=== PATIENT | female | born 1935 | race Caucasian/White ===

== ENCOUNTER 2018-03-10 17:37 | Inpatient (IN) | payer MEDICARE, BC ==
[~2018-03-10] VITALS: Ht 144.8 cm; Wt 61.2 kg
--- NOTE | 2018-03-10 17:52 | NUR ---
PT BIBRA TO ER BED 07. PRESENTS W/ LLE PAIN S/P MECHANICAL GLF AT AROUND 0930 TODAY. LLE SHORTENING W/ EXTERNAL ROTATION NOTED. FACIAL BRUSING AND SCALP LACERATION NOTED. PT IS AAOX3. C/O 06/15 PAIN. PLACED ON MONITOR. VSS. AWAITING MD YANG.
--- NOTE | 2018-03-10 17:58 | NUR ---
PT'S DAUGHTER KOREY [phone]
[2018-03-10] MEDS ORDERED: IV NS 0.9% 500 ML BAG IV ONE (18:00)
[2018-03-10] MEDS ORDERED: MORPHINE SULFATE INJ 2 MG/ML DISP.SYRIN IV ONE (18:00)
--- NOTE | 2018-03-10 18:00 | NUR ---
DR DUBON AT BEDSIDE FOR EVAL.
[2018-03-10 18:19] LABS: BASOPHILS # (AUTO) 0.1 /CMM (0.0-0.2); BASOPHILS % (AUTO) 0.3 % (0.0-2.0); HEMATOCRIT 36 % (33-45); HEMOGLOBIN 11.7 g/dL (11.5-14.8); LYMPHOCYTES # (AUTO) 0.3 /CMM (0.8-4.8); LYMPHOCYTES % (AUTO) 1.5 % (20.0-44.0); MEAN CORPUSCULAR HGB CONC 33 g/dl (31.0-36.0); MEAN CORPUSCULAR VOLUME 97 fL (82-100); MONOCYTES # (AUTO) 0.6 /CMM (0.1-1.30); MONOCYTES % (AUTO) 3.6 % (2.0-12.0); NEUTROPHILS # (AUTO) 16.2 /CMM (1.8-8.9); NEUTROPHILS % (AUTO) 94.6 % (43.0-81.0); PLATELET COUNT (AUTO) 258 /CMM (150-450); RED BLOOD CELL COUNT(AUTO) 3.69 MIL/uL (4.0-5.2); WHITE BLOOD COUNT (AUTO) 17.2 K/uL (4.3-11.0)
[2018-03-10 18:27] LABS: BILIRUBIN,URINE Negative (NEGATIVE); BLOOD, URINE Trace-intact Ery/uL (NEGATIVE); COLOR,URINE Yellow (YELLOW); KETONES,URINE Trace (NEGATIVE); LEUKOCYTE ESTERASE ,URINE Large (NEGATIVE); NITRITE, URINE Positive (NEGATIVE); PH,URINE 7.5 (5.0-8.0); PROTEIN,URINE 30 mg/dl (NEGATIVE); UGLUCOSE Negative (NEGATIVE); UROBILINOGEN,URINE 0.2 EU/dL (0.2)
[2018-03-10 18:29] LABS: APPEARANCE,URINE HAZY (CLEAR)
[2018-03-10 18:33] LABS: CALCIUM, SERUM 8.4 mg/dL (8.5-10.1); CARBON DIOXIDE 26 mmol/L (21-32); CHLORIDE 106 mmol/L (98-107); CREATININE 1.2 mg/dL (0.6-1.3); GLUCOSE 104 mg/dL (74-106); POTASSIUM 4.1 mmol/L (3.5-5.1); SODIUM SERUM 141 mmol/L (136-145); UREA NITROGEN, BLOOD 23 mg/dL (7-18)
[2018-03-10 18:37] LABS: BACTERIA,URINE Many /HPF (None Seen); SQUAMOUS EPITHELIAL CELL,UR Few /HPF (None Seen)
[2018-03-10 18:38] LABS: WBC,URINE 21-50 /HPF (0-3)
[2018-03-10 18:39] LABS: ALANINE AMINOTRANSFERASE 20 U/L (12-78); ALBUMIN 2.5 g/dL (3.4-5.0); ALKALINE PHOSPHATASE 192 U/L (46-116); ASPARTATE AMINOTRANSFERASE 32 U/L (15-37); BILIRUBIN,DIRECT 0.1 mg/dL (0.0-0.2); BILIRUBIN,TOTAL 0.4 mg/dL (0.2-1.0); TOTAL PROTEIN, SERUM 6.6 g/dL (6.4-8.2)
[2018-03-10] MEDS ORDERED: CLOP75TA15 PO (18:39)
[2018-03-10] MEDS ORDERED: DOMPERIDONE PO (18:39)
[2018-03-10] MEDS ORDERED: HYDR200T81 PO (18:39)
[2018-03-10] MEDS ORDERED: METO25TA6 PO (18:39)
[2018-03-10] MEDS ORDERED: BUSP5TAB3 PO (18:39)
[2018-03-10] MEDS ORDERED: NITR50CA PO (18:39)
[2018-03-10] MEDS ORDERED: ALEN70TA6 PO (18:39)
[2018-03-10] MEDS ORDERED: MYRBETRIQ PO (18:39)
[2018-03-10] MEDS ORDERED: CALC0.253 PO (18:39)
[2018-03-10] MEDS ORDERED: FURO-145 PO (18:39)
[2018-03-10] MEDS ORDERED: MELA3TAB PO (18:39)
[2018-03-10] MEDS ORDERED: PROM25TA15 PO (18:39)
--- NOTE | 2018-03-10 18:40 | NUR ---
PT TO RADIOLOGY FOR HEAD, C SPINE, THORACIC CT SCAN VIA [facility].
[2018-03-10] MEDS ORDERED: CEFTRIAXONE 1GM BAG (ER ONLY) 50 ML IV ONE ×2 (19:00→19:11)
[2018-03-10] MEDS ORDERED: IV NS 0.9% 1,000 ML BAG IV ONE (19:00)
--- NOTE | 2018-03-10 19:08 | NUR ---
REPORT TO TRISH ODELL FOR KARINA.
[2018-03-10 19:17] LABS: CREATINE KINASE, TOTAL 148 U/L (26-192)
--- NOTE | 2018-03-10 19:25 | NUR ---
PER PHARMACY MORPHINE IVP OUT OF STOCK, MADE AWARE. NEW ORDER FOR DILAUDID IVP
[2018-03-10] MEDS ORDERED: HYDROMORPHONE INJ 2 MG/ML DISP.SYRIN ONE (19:28)
[2018-03-10] MEDS ORDERED: HYDROMORPHONE 1 MG/1 ML DISP.SYRIN IV ONE (19:30)
--- NOTE | 2018-03-10 19:44 | NUR ---
CALLED [place] GUM SPRAYER WAS PAGED.
--- NOTE | 2018-03-10 19:45 | NUR ---
CALLED [place] MATHEWS MH TEACHER WAS PAGED.
[2018-03-10 20:20] VITALS: BP 165/79
--- NOTE | 2018-03-10 20:21 | NUR ---
TRANSFERRED TO ROOM 324-2 MS
--- NOTE | 2018-03-10 20:21 | NUR ---
REPORT GIVEN TO CASS HUGO FOR KARINA
--- NOTE | 2018-03-10 20:45 | NUR ---
RN NOTES ADMITTED AN 82 YEAR OLD FEMALE PATIENT TRANSPORTED VIA GURNEY, ACCOMPANIED BY FAMILY FRIEND. AWAKE, ALERT, ORIENTED X 4. BREATHING EVEN AND NON LABORED, WITH IV ACCESS ON HER RIGHT AC G#20 DRY AND INTACT. NO SIGNS OF ACUTE DISTRESS NOTED, INITIAL PHYSICAL ASSESSMENT DONE. KEPT CLEAN DRY AND COMFORTABLE. ALL SAFETY MEASURES MAINTAINED, BED IN LOW LOCK POSITION, BEDSIDE RAILS UP X 2. ALL NEEDS ATTENDED. WILL MONITOR ACCORDINGLY.
[2018-03-10] MEDS ORDERED: CIPROFLOXACIN HCL 250 MG TABLET PO SCH (23:00)
[2018-03-11] VITALS (10 sets, daily range): BP systolic 108–146; BP diastolic 52–80
[2018-03-11] MEDS ORDERED: ACETAMINOPHEN 650 MG/SUPP.RECT RC PRN
[2018-03-11] MEDS ORDERED: ONDANSETRON HCL/PF 4 MG/2 ML VIAL IVP PRN
[2018-03-11] MEDS ORDERED: NITROGLYCERIN PACKET 1 GM PACKET TOP PRN
[2018-03-11] MEDS: IV D5/0.45 NACL 1,000 ML IV PRN (00:19)
[2018-03-11] MEDS ORDERED: CIPROFLOXACIN HCL 500 MG TABLET ONE (00:46)
[2018-03-11] MEDS ORDERED: CIPROFLOXACIN HCL 500 MG TABLET PO SCH (00:52)
[2018-03-11] MEDS ORDERED: CIPROFLOXACIN HCL 500 MG TABLET PO ONE (01:00)
[2018-03-11] MEDS: HYDROMORPHONE INJ 2 MG/ML DISP.SYRIN IV PRN ×2 (03:53→23:04)
[2018-03-11] MEDS ORDERED: CLONIDINE HCL 0.1MG/24H PTWK 1 EA PATCH TD SCH (06:00)
--- NOTE | 2018-03-11 06:23 | NUR ---
MS RN NOTES PATIENT RESTING COMFORTABLY AT THIS TIME, ALERT ORIENTED X 4, NPO AFTER MIDNIGHT, PRE OP CHECKLIST DONE, CONSENT SIGNED FOR INTRAMEDULLARY LEFT HIP NAILING. ALL BED SIDE RAILS UP, SITTER AT BEDSIDE. KEEP CLEAN AND DRY, FC DRAINING WELL, WILL ENDORSE TO AM NURSE FOR KARINA..
[2018-03-11 06:36] LABS: BASOPHILS % (AUTO) 0.1 % (0.0-2.0); HEMATOCRIT 31 % (33-45); HEMOGLOBIN 10.4 g/dL (11.5-14.8); LYMPHOCYTES # (AUTO) 0.6 /CMM (0.8-4.8); LYMPHOCYTES % (AUTO) 5.4 % (20.0-44.0); MEAN CORPUSCULAR HGB CONC 34 g/dl (31.0-36.0); MEAN CORPUSCULAR VOLUME 96 fL (82-100); MONOCYTES # (AUTO) 0.9 /CMM (0.1-1.30); MONOCYTES % (AUTO) 7.6 % (2.0-12.0); NEUTROPHILS # (AUTO) 9.7 /CMM (1.8-8.9); NEUTROPHILS % (AUTO) 86.9 % (43.0-81.0); PLATELET COUNT (AUTO) 209 /CMM (150-450); RED BLOOD CELL COUNT(AUTO) 3.23 MIL/uL (4.0-5.2); WHITE BLOOD COUNT (AUTO) 11.2 K/uL (4.3-11.0)
[2018-03-11 06:53] LABS: ALANINE AMINOTRANSFERASE 17 U/L (12-78); ALBUMIN 2.1 g/dL (3.4-5.0); ALKALINE PHOSPHATASE 157 U/L (46-116); ASPARTATE AMINOTRANSFERASE 29 U/L (15-37); BILIRUBIN,TOTAL 0.3 mg/dL (0.2-1.0); CALCIUM, SERUM 7.9 mg/dL (8.5-10.1); CARBON DIOXIDE 26 mmol/L (21-32); CHLORIDE 108 mmol/L (98-107); GLUCOSE 96 mg/dL (74-106); MAGNESIUM 1.6 mg/dL (1.8-2.4); PHOSPHORUS 3.9 mg/dL (2.5-4.9); POTASSIUM 4.5 mmol/L (3.5-5.1); SODIUM SERUM 140 mmol/L (136-145); TOTAL PROTEIN, SERUM 5.7 g/dL (6.4-8.2); UREA NITROGEN, BLOOD 20 mg/dL (7-18)
--- NOTE | 2018-03-11 07:15 | NUR ---
RN NOTES RECEIVED CALL FROM OR, SPOKE TO CASS SORIA, REGARDING PTS SURGERY, WILL WAIT FOR CARDIAC CLEARANCE AND TO CALL SURGERY ONCE CLEARED. WILL ENDORSE TO AM NURSE.
--- NOTE | 2018-03-11 07:53 | NUR ---
PLANT SUPERINTENDENT NOTES PATIENT RECEIVED RESTING INSIDE ROOM. SLEEPING, EASILY AROUSABLE THROUGH VERBAL AND TACTILE STIMULI. BREATHING EVEN AND UNLABORED. NO SOB OR ACUTE DISTRESS. PATIENT CALM AND RELAXED. DENIES ANY PAIN OR DISCOMFORT. CONTINUE ON TELEMETRY, BOOKING POLICE OFFICER IN PLACE. PATIENT NPO SINCE MIDNIGHT. AWAITING FOR CARDIAC CLEARANCE, WITH PLAN FOR SURGERY TODAY. PATIENT AWARE AND VERBALIZED UNDERSTANDING. WILL CONTINUE TO MONITOR. BED LOCKED AND IN LOW POSITION. BILATERAL UPPER SIDE RAILS UP AND LOCKED. CALL LIGHT WITHIN EASY REACH
--- NOTE | 2018-03-11 08:26 | NUR ---
RECOVERY ROOM RN NOTES PLACED CALL TO OFFICE OF DR. PAN ([phone]) AND SPOKE TO ROBYN, UNABLE TO DIRECTLY SPEAK TO DR. PAN AT THIS TIME. LEFT A MESSAGE WITH ROBYN REGARDING REQUEST FOR CARDIAC CLEARANCE. PLACED CALL TO OR/PRE-OP AND MADE AWARE OF PENDING CARDIAC CLEARANCE.
[2018-03-11] MEDS: CIPROFLOXACIN HCL 500 MG TABLET PO SCH ×2 (08:57→21:11)
[2018-03-11] MEDS: PANTOPRAZOLE 40 MG VIAL IV SCH (08:57)
--- NOTE | 2018-03-11 09:10 | NUR ---
REPAIRER HANDTOOLS NOTES PATIENT SEEN AND EXAMINED BY DR. PAN. CLEARED FOR SURGERY. DR. RAMAN PRESENT AT UNIT AND AWARE. PATIENT MADE AWARE AND VERBALIZED UNDERSTANDING. PATIENT LEFT FOR SURGERY AT 0910 IN STABLE CONDITION. BREATHING EVEN AND UNLABORED. NO SOB OR ACUTE DISTRESS. WILL CONTINUE TO MONITOR
[2018-03-11 09:15] LABS: CHOLESTEROL 115 mg/dL (<200); HDL CHOLESTEROL 57 mg/dL (40-60); LDL 51 mg/dL (0-99); THYROID STIMULATING HORMONE 1.816 uIU/mL (0.358-3.74); TRIGLYCERIDES 80 mg/dL (30-150)
[2018-03-11] MEDS ORDERED: FENTANYL PF 250MCG/5ML AMPUL ONE (09:17)
[2018-03-11] MEDS ORDERED: MIDAZOLAM HCL 2 MG/2ML VIAL ONE ×2 (09:17→12:38)
[2018-03-11] MEDS ORDERED: ROCURONIUM BROMIDE 50 MG/5 ML ONE (09:18)
[2018-03-11] MEDS ORDERED: METOCLOPRAMIDE HCL 10 MG/2 ML VIAL ONE ×2 (09:30→11:53)
[2018-03-11] MEDS ORDERED: FAMOTIDINE/PF INJ 20 MG/2 ML VIAL IV ONE (09:30)
[2018-03-11] MEDS ORDERED: BACITRACIN 50000 UNITS/VIAL ONE (10:08)
[2018-03-11] MEDS ORDERED: BUPIVACAINE 0.5 % PF 150 MG/30 ML VIAL ONE (11:01)
[2018-03-11] MEDS ORDERED: ONDANSETRON HCL/PF 4 MG/2 ML VIAL ONE (12:02)
[2018-03-11] MEDS ORDERED: ALBUTEROL HALF STRENGTH 1.25 MG/3 ML VIAL.NEB ONE (12:25)
--- NOTE | 2018-03-11 12:30 | NUR ---
RARE/ENDANGERED SPECIES SPECIALIST NOTES RECEIVED CALL FROM RECOVERY, SPOKE WITH YANG RN AND RECEIVED REPORT THAT PATIENT WILL BE COMING BACK FROM SURGERY/RECOVERY. PREPARED MAGNESIUM 1G X 2 BAGS FOR IV INFUSION ONCE PATIENT COMES BACK TO UNIT.
--- NOTE | 2018-03-11 13:00 | NUR ---
COMPOSER TEACHING ARTIST NOTES RECEIVED CALL FROM MAT CHARGE NURSE THAT PATIENT WILL BE TRANSFERED TO MAT. REPORT GIVEN TO RIMMA ODELL. MAGNESIUM 1G X 2 BAGS AND PATIENT BELONGINGS WILL BE BROUGHT TO MAT FOR PATIENT TRANSFER
--- NOTE | 2018-03-11 13:18 | NUR ---
marissa rn note received patient from sx with dx lt femur fx ,s\p lt hip im rodding , under care dr Liao, alert , oriented x3 on 2l nc, sat 100%, no sob noted at this time , with Fermin cath to gravity with yellow color urine , will restart ivf as ordered , bed in lowest and locked position, lt hip dressing intact, no bleeding noted ,rt ac hl intact, will cont to monitor closely
--- NOTE | 2018-03-11 13:30 | NUR ---
HIM SPECIALISTS NOTES BEDSIDE REPORT GIVEN TO BEENA ODELL FOR KARINA. PATIENT BELONGINGS BROUGHT TO MAT. ALL BELONGINGS COMPLETE ON TRANSFER, INCLUDING, BUT NOT LIMITED TO, CELL PHONE, CLOTHES, MEDICATION LIST. MD MADE AWARE OF TRANSFER
[2018-03-11] MEDS: Magnesium 1GM/D5W 100ML PREMIX 100 ML IV SCH ×2 (13:34→14:37)
[2018-03-11] MEDS: ENOXAPARIN SODIUM 30 MG/0.3 ML DISP.SYRIN SQ SCH (13:38)
--- NOTE | 2018-03-11 15:00 | NUR ---
MAT RN NOTE NOTED BLEEDING FROM SITE ON LT LOWER LEG ,DRESSING REINFORCED, ALSO ON MAGNESIUM INFUSING, VS TAKEN , NO C\O PAIN AT THIS TIME, ON DVT PUMPS CALL LIGHT WITHIN REACH
[2018-03-11] MEDS: LACTOBACILLUS RHAMNOSUS GG 1 EACH CAP.SPRINK PO SCH (16:21)
--- NOTE | 2018-03-11 16:47 | NUR ---
MAT RN NOTE CONT ON IVF ORDERED, DAUGHTER AT BEDSIDE , ALL NEEDS ATTENDED CALL LIGHT WITHIN REACH
--- NOTE | 2018-03-11 18:28 | NUR ---
MAT RN NOTE CONT ON IVF ORDERED DAUGHTER AT BEDSIDE, NOT IN ACUTE DISTRESS
--- NOTE | 2018-03-11 20:00 | NUR ---
Received patient AAO X 3.S/P IM RODDING to left femur with dressing C/D/I.Respiration even and unlabored with O2 2L NC SPO2 100%.SR per tele monitoring.IVF infusing to RAC site intact.Denies pain,nausea or vomiting.With bruising to face.Turned and repositioned. BLE SCD on pulses palpable.Call light at bedside within easy reach with instruction to call for assistance.Verbalized understanding. Addendum: 03/12/18 at 1064 by NORA LAZO RN CORRECTION :S/P IM NAILING LEFT HIP
--- NOTE | 2018-03-11 23:35 | NUR ---
Patient c/o pain to right hip and femur.PRN Dilaudid administered and verbalized relief.
[2018-03-11] MEDS: CEFTRIAXONE 1 G in IV D5W 50 ML IV SCH ×3 (23:37)
[2018-03-12] VITALS: BP 114/61
[2018-03-12 04:00] VITALS: BP 118/59
[2018-03-12] MEDS: IV D5/0.45 NACL 1,000 ML IV PRN (06:30)
--- NOTE | 2018-03-12 06:45 | NUR ---
Patient awake vs remains stable.ST 110-113.Denies pain or sob.O2 2L NC on.IVF infusing well. Turned and repositioned.Tolerating po intake.Adequate urine output.No BM.Dressing intact no active bleeding noted.
--- NOTE | 2018-03-12 07:10 | NUR ---
MAT RN OPENING NOTES RECEIVED PT LYING ON BED.ALERT/ORIENTED X3.ON TELE HR IS 100'S WITH SINUS TACHYCARDIA.ON 2L O2 VIA NC CONTINUOUSLY.NO SOB AND ACUTE DISTRESS NOTED.IV LINE IS ON RIGHT AC G20,SITE IS CLEAN,DRY AND INTACT.NO INFILTRATION NOTED.BRUISES SEEN ON LEFT SIDE OF FACE BECAUSE OF S/P FALL.SAFETY IS MAINTAINED AT ALL TIMES.BED IS IN LOW POSITION AND LOCKED.CALL LIGHT IS WITHIN REACH.WILL CONTINUE TO MONITOR THE PT CLOSELY AND FOLLOW UP WITH PT EVAL TODAY.
[2018-03-12 07:32] LABS: BASOPHILS % (AUTO) 0.2 % (0.0-2.0); HEMATOCRIT 24 % (33-45); HEMOGLOBIN 7.9 g/dL (11.5-14.8); LYMPHOCYTES # (AUTO) 0.7 /CMM (0.8-4.8); LYMPHOCYTES % (AUTO) 5.3 % (20.0-44.0); MEAN CORPUSCULAR HGB CONC 33 g/dl (31.0-36.0); MEAN CORPUSCULAR VOLUME 96 fL (82-100); MONOCYTES # (AUTO) 1.3 /CMM (0.1-1.30); MONOCYTES % (AUTO) 10.3 % (2.0-12.0); NEUTROPHILS # (AUTO) 10.4 /CMM (1.8-8.9); NEUTROPHILS % (AUTO) 84.2 % (43.0-81.0); PLATELET COUNT (AUTO) 179 /CMM (150-450); RED BLOOD CELL COUNT(AUTO) 2.52 MIL/uL (4.0-5.2); WHITE BLOOD COUNT (AUTO) 12.4 K/uL (4.3-11.0)
[2018-03-12 08:00] VITALS: BP_SYST 137; BP_SYST 164; BP_DIAS 64; BP_DIAS 68
[2018-03-12] MEDS: LACTOBACILLUS RHAMNOSUS GG 1 EACH CAP.SPRINK PO SCH ×2 (08:09→16:15)
[2018-03-12] MEDS: PANTOPRAZOLE 40 MG VIAL IV SCH (08:10)
[2018-03-12] MEDS: CIPROFLOXACIN HCL 500 MG TABLET PO SCH (08:12)
[2018-03-12] MEDS: ENOXAPARIN SODIUM 30 MG/0.3 ML DISP.SYRIN SQ SCH (08:12)
[2018-03-12 08:19] LABS: CALCIUM, SERUM 7.2 mg/dL (8.5-10.1); CARBON DIOXIDE 25 mmol/L (21-32); CHLORIDE 105 mmol/L (98-107); CREATININE 1.2 mg/dL (0.6-1.3); GLUCOSE 114 mg/dL (74-106); MAGNESIUM 2.2 mg/dL (1.8-2.4); POTASSIUM 3.8 mmol/L (3.5-5.1); SODIUM SERUM 137 mmol/L (136-145); UREA NITROGEN, BLOOD 21 mg/dL (7-18)
--- NOTE | 2018-03-12 11:14 | NUR ---
MAT RN NOTES SECURITY INSTALLER AMINTA CARTER SEEN TH EPT AND ORDERED TO START INCENTIVE SPIROMETRY AND D/C IV FLUIDS AND TAB CIPRO.PT AND FAMILY MADE AWARE AND EXPLAINED HOW TO USE INCENTIVE SPIROMETRY AND PT VERBALIZED SHE UNDERSTOOD.
[2018-03-12] MEDS ORDERED: ENSURE ENLIVE CHOC 237 ML CAN PO SCH (11:30)
[2018-03-12 12:00] VITALS: BP 113/76
[2018-03-12] MEDS: HYDROMORPHONE INJ 2 MG/ML DISP.SYRIN IV PRN (14:19)
--- NOTE | 2018-03-12 14:30 | NUR ---
LOG PREPARER NOTES ,UROLOGY SURGEON SEEN THE PT AND D/C O2 VIA NC,TOLERATING WELL.
--- NOTE | 2018-03-12 14:45 | NUR ---
DETACHER NOTES PT EVAL HAS DONE,TOLERATING WELL.NO COMPLICATIONS NOTED
[2018-03-12 16:00] VITALS: BP 129/70
[2018-03-12] MEDS: ENSURE ENLIVE CHOC 237 ML CAN PO SCH (18:02)
--- NOTE | 2018-03-12 18:55 | NUR ---
BIOCHEMISTRY TECHNICIAN CLOSING NOTES PT IS LYING ON BED.TOLERATING WELL ON ROOM AIR.NO SOB AND ACUTE DISTRESS NOTED.RESPIRATION IS EVEN AND NON LABORED.ENDORSED TO FOREST AIDE RN FOR KARINA.
--- NOTE | 2018-03-12 19:44 | NUR ---
CHILD CARE ASSOCIATE TEACHER NOTES NOTED WITH FC OUTPUT 100ML,AMINTA ORDERED RESUME IV FLUID NS@75ML/HR.NEW ORDERS NOTED AND CARRIED OUT.
[2018-03-12] MEDS ORDERED: IV NS 0.9% 1,000 ML BAG IV PRN (20:00)
--- NOTE | 2018-03-12 20:00 | NUR ---
MAT RN OPENING NOTES RECEIVED PT REPORT FROM AM NURSE. PT IS IN BED.ALERT/ORIENTED X3.ON TELE MONITOR HR IS 100'S WITH SINUS TACHYCARDIA.ON 2L O2 VIA NC.NO SOB AND ACUTE DISTRESS NOTED.IV LINE IS ON RIGHT AC G20,SITE IS CLEAN,DRY AND INTACT.NO INFILTRATION NOTED.BRUISES SEEN ON LEFT SIDE OF FACE BECAUSE OF S/P FALL. NO COMPLAINS OF PAIN, NO SOB AT THIS TIME.SAFETY IS MAINTAINED AT ALL TIMES.BED IS IN LOW POSITION AND LOCKED.CALL LIGHT IS WITHIN REACH.WILL CONTINUE TO MONITOR THE PT CLOSELY .
[2018-03-12 21:00] VITALS: BP 114/55
[2018-03-12] MEDS: METOPROLOL TARTRATE 25 MG TABLET PO SCH (21:58)
[2018-03-12] MEDS: IV NS 0.9% 1,000 ML IV PRN (22:21)
[2018-03-13] VITALS (12 sets, daily range): BP systolic 92–112; BP diastolic 40–68
--- NOTE | 2018-03-13 | NUR ---
RN NOTE BLADDER SCAN WAS DONE PER MD ORDER, 45 ML OF URINE RESIDUAL NOTED
[2018-03-13] MEDS: CEFTRIAXONE 1 G in IV D5W 50 ML IV SCH ×2 (00:56→23:08)
[2018-03-13 07:41] LABS: BASOPHILS % (AUTO) 0.4 % (0.0-2.0); EOSINOPHILS % (AUTO) 0.1 % (0.0-6.0); LYMPHOCYTES # (AUTO) 0.5 /CMM (0.8-4.8); LYMPHOCYTES % (AUTO) 5.1 % (20.0-44.0); MEAN CORPUSCULAR HGB CONC 34 g/dl (31.0-36.0); MEAN CORPUSCULAR VOLUME 95 fL (82-100); MONOCYTES % (AUTO) 9.8 % (2.0-12.0); NEUTROPHILS # (AUTO) 8.3 /CMM (1.8-8.9); NEUTROPHILS % (AUTO) 84.6 % (43.0-81.0); PLATELET COUNT (AUTO) 151 /CMM (150-450); WHITE BLOOD COUNT (AUTO) 9.8 K/uL (4.3-11.0)
[2018-03-13 07:55] LABS: CALCIUM, SERUM 7.2 mg/dL (8.5-10.1); CARBON DIOXIDE 25 mmol/L (21-32); CHLORIDE 105 mmol/L (98-107); CREATININE 1.2 mg/dL (0.6-1.3); GLUCOSE 95 mg/dL (74-106); SODIUM SERUM 134 mmol/L (136-145); UREA NITROGEN, BLOOD 20 mg/dL (7-18)
[2018-03-13 08:49] LABS: RED BLOOD CELL COUNT(AUTO) 1.91 MIL/uL (4.0-5.2)
[2018-03-13 08:50] LABS: HEMATOCRIT 18 % (33-45); HEMOGLOBIN 6.3 g/dL (11.5-14.8)
[2018-03-13] MEDS: ENOXAPARIN SODIUM 30 MG/0.3 ML DISP.SYRIN SQ SCH (09:00)
[2018-03-13] MEDS: LACTOBACILLUS RHAMNOSUS GG 1 EACH CAP.SPRINK PO SCH ×2 (10:06→16:15)
[2018-03-13] MEDS: PANTOPRAZOLE 40 MG VIAL IV SCH (10:06)
[2018-03-13] MEDS: METOPROLOL TARTRATE 25 MG TABLET PO SCH ×2 (10:11→21:00)
[2018-03-13] MEDS: HYDROMORPHONE INJ 2 MG/ML DISP.SYRIN IV PRN ×2 (10:16→23:07)
[2018-03-13] MEDS: ENSURE ENLIVE CHOC 237 ML CAN PO SCH ×2 (10:35→16:15)
[2018-03-13 13:10] LABS: LYMPHOCYTES % (MANUAL) 5 % (16-48); MONOCYTES % (MANUAL) 4 % (0-11.0); NEUTROPHILS % (MANUAL) 91 (42-76)
--- NOTE | 2018-03-13 14:36 | NUR ---
HOME APPLIANCE WASHING MACHINE MECHANIC NOTE BLOOD TRANSFUSION STILL INFUSING, PATIENT'S IV SITE STARTED LEAKING DURING TRANSFUSION, SO IV SITE WAS CHANGED TO A NEW ONE AND BLOOD TRANSFUSION WAS ON HOLD FOR ABOUT 15 MINUTES. APPROXIMATELY 50ML OF BLOOD CURRENTLY LEFT IN THE BAG.
--- NOTE | 2018-03-13 20:12 | NUR ---
MEDSURG RN NOTE PATIENT RESTING IN BED IN STABLE CONDITION, ON ROOM AIR, NO RESPIRATORY DISTRESS NOTED. ABLE TO MAKE NEEDS KNOWN. IV SITE ON RIGHT HAND INTACT INFUSING NORMAL SALINE ORDERED. BED IN LOW LOCKED POSITION, CALL LIGHT WITHIN REACH, ENDORSED TO RESIDENCE MANAGER NURSE FOR CONTINUITY OF CARE.
--- NOTE | 2018-03-13 21:00 | NUR ---
RN NOTE PER DR MIKA SALINAS HOLD METOPROLOL 25MG AT 2100 DUE BP 108/58, ONE TIME ONLY
[2018-03-13] MEDS: IV NS 0.9% 1,000 ML IV PRN (22:41)
[2018-03-14 04:00] VITALS: BP 114/49
--- NOTE | 2018-03-14 06:00 | NUR ---
RN NOTE BLADDER SCAN WAS DONE, 0 ML OF RESIDUAL NOTED
[2018-03-14 06:43] LABS: BASOPHILS # (AUTO) 0.1 /CMM (0.0-0.2); BASOPHILS % (AUTO) 0.6 % (0.0-2.0); EOSINOPHILS % (AUTO) 1.4 % (0.0-6.0); HEMATOCRIT 24 % (33-45); HEMOGLOBIN 8.2 g/dL (11.5-14.8); LYMPHOCYTES # (AUTO) 0.7 /CMM (0.8-4.8); LYMPHOCYTES % (AUTO) 6.9 % (20.0-44.0); MEAN CORPUSCULAR HGB CONC 34 g/dl (31.0-36.0); MEAN CORPUSCULAR VOLUME 93 fL (82-100); MONOCYTES # (AUTO) 1.1 /CMM (0.1-1.30); MONOCYTES % (AUTO) 12.1 % (2.0-12.0); NEUTROPHILS # (AUTO) 7.5 /CMM (1.8-8.9); PLATELET COUNT (AUTO) 122 /CMM (150-450); WHITE BLOOD COUNT (AUTO) 9.5 K/uL (4.3-11.0)
[2018-03-14 08:00] VITALS: BP 140/61
[2018-03-14] MEDS: PANTOPRAZOLE 40 MG VIAL IV SCH (08:23)
[2018-03-14] MEDS: LACTOBACILLUS RHAMNOSUS GG 1 EACH CAP.SPRINK PO SCH ×2 (08:23→18:21)
[2018-03-14] MEDS: METOPROLOL TARTRATE 25 MG TABLET PO SCH ×2 (08:23→21:23)
[2018-03-14] MEDS: HYDROMORPHONE INJ 2 MG/ML DISP.SYRIN IV PRN ×3 (08:24→23:58)
[2018-03-14] MEDS: ENSURE ENLIVE CHOC 237 ML CAN PO SCH ×2 (08:25→18:22)
[2018-03-14] MEDS: ENOXAPARIN SODIUM 30 MG/0.3 ML DISP.SYRIN SQ SCH (09:00)
--- NOTE | 2018-03-14 10:29 | NUR ---
MED SURG NOTE HELD LOVENOX SQ PER DR. CARRION.
[2018-03-14 16:00] VITALS: BP 145/73
[2018-03-14] MEDS: IV NS 0.9% 1,000 ML IV PRN (18:22)
--- NOTE | 2018-03-14 19:25 | NUR ---
MEDSURG RN NOTE PATIENT RESTING IN BED IN STABLE CONDITION, NO SIGNS OF RESPIRATORY DISTRESS, ABLE TO MAKE NEEDS KNOWN. BED IN LOW LOCKED POSITION, SCD'S ON BILATERAL LOWER EXTREMITIES, IV SITE ON LEFT HAND INTACT INFUSING NORMAL SALINE ORDERED. CALL LIGHT WITHIN REACH, ENDORSED TO MANAGER ORACLE NURSE FOR CONTINUITY OF CARE.
[2018-03-14 20:00] VITALS: BP 144/78
[2018-03-14] MEDS: CEFTRIAXONE 1 G in IV D5W 50 ML IV SCH (23:58)
[2018-03-15] MEDS ORDERED: BISACODYL SUPP (10 MG) 10 MG/SUPP.RECT SUPP.RECT RC PRN (00:30)
--- NOTE | 2018-03-15 01:00 | NUR ---
RN NOTE BLADDER SCAN DONE, 45 ML NOTED
[2018-03-15 04:00] VITALS: BP 125/64
--- NOTE | 2018-03-15 07:00 | NUR ---
RN NOTE BLADDER SCAN DONE, 60 ML NOTED
--- NOTE | 2018-03-15 07:30 | NUR ---
RN NOTES RECEIVED PATIENT IN BED ALERT, AWAKE, ORIENTED X3 WITH BREATHING NORMAL, EVEN AND UNLABORED. NO SOB NOTED. NO ACUTE DISTRESS NOTED. ON ROOM AIR, SATURATING WELL. IV L HAND IS PATENT AND INTACT,CONT ON IVF PER ORDER. KEPT CLEAN, DRY AND COMFORTABLE. ALL NEEDS ATTENDED. SAFETY MEASURE OBSERVED. CALL LIGHT WITH IN REACH. WILL CONT TO MONITOR.
[2018-03-15 08:00] VITALS: BP 159/74
[2018-03-15] MEDS: ENSURE ENLIVE CHOC 237 ML CAN PO SCH ×2 (08:00→16:20)
[2018-03-15] MEDS: PANTOPRAZOLE 40 MG VIAL IV SCH (08:39)
[2018-03-15] MEDS: LACTOBACILLUS RHAMNOSUS GG 1 EACH CAP.SPRINK PO SCH ×2 (08:40→16:19)
[2018-03-15] MEDS: METOPROLOL TARTRATE 25 MG TABLET PO SCH (08:40)
[2018-03-15] MEDS: ENOXAPARIN SODIUM 30 MG/0.3 ML DISP.SYRIN SQ SCH (09:00)
--- NOTE | 2018-03-15 11:25 | NUR ---
WOUND CARE CONSULT: PT PRESENTS WITH VERY BONY SACRAL AREA WITH SOME SKIN STAINING OF BUTTOCKS, PRESENT ON ADMISSION. RECOMMENDATIONS MADE FOR SKIN PROTECTION AND DISCUSSED WITH NURSING STAFF. CURRENT LOUANN SCORE IS 15. WILL SEE PRN. SMITH IN AGREEMENT WITH PLAN OF CARE. Addendum: 03/15/18 at 1126 by DAKOTAH VIEYRA WNDNU Amended: Links added.
[2018-03-15] MEDS ORDERED: Z GUARD REMEDY 2 OZ OINT TP PRN (11:30)
[2018-03-15] MEDS ORDERED: Z GUARD REMEDY 2 OZ OINT TP SCH (11:30)
[2018-03-15] MEDS: HYDROMORPHONE INJ 2 MG/ML DISP.SYRIN IV PRN (14:07)
[2018-03-15] MEDS ORDERED: PANT40TA2 GT (14:58)
[2018-03-15] MEDS ORDERED: ASPIRIN EC 325 MG TABLET.DR PO SCH (15:00)
[2018-03-15 16:00] VITALS: BP 135/75
[2018-03-15 17:15] VITALS: BP 135/75
--- NOTE | 2018-03-15 19:33 | NUR ---
RN NOTES PATIENT DISCHARGED IN STABLE CONDITION WITH BREATHING NORMAL, EVEN AND UNLABORED. NO SOB NOTED. NO ACUTE DISTRESS NOTED. REPORT GIVEN TO ULISES SOLER IN SNF. DISCHARGE INSTRUCTION GIVEN WITH FEEDBACK . UNDERSTOOD WELL. IV HEPLOCK REMOVED. PATIENT LEFT VIA AMBULANCE IN STABLE CONDITION. Addendum: 03/15/18 at 1937 by LEDY JOHNSON RN D/C TIME 7713.
== END 2018-03-15 17:54 | DRG 480 ==
LOC: ER 17:41 → MED 19:58 → TELE 03-11 00:28 → TELE-TD 03-11 13:05 → TELE1 03-12 16:31 → MEDSG1 03-13 19:02
PROVIDERS: ADMIT Internal Medicine; ATTEND Student in an Organized Health Care Education/Training Program
PROC: 0QS706Z Reposition Left Upper Femur with Intramedullary Internal Fixation Device, Open Approach (ICD-10-PCS; principal; 2018-03-11)
PROC: 30233N1 Transfusion of Nonautologous Red Blood Cells into Peripheral Vein, Percutaneous Approach (ICD-10-PCS; 2018-03-13)
DX: M80.052A Age-related osteoporosis with current pathological fracture, left femur, initial encounter for fracture (principal); N17.0 Acute kidney failure with tubular necrosis; E43 Unspecified severe protein-calorie malnutrition; N39.0 Urinary tract infection, site not specified; D68.59 Other primary thrombophilia; I50.32 Chronic diastolic (congestive) heart failure; S72.142A Displaced intertrochanteric fracture of left femur, initial encounter for closed fracture; W18.30XA Fall on same level, unspecified, initial encounter; Y92.009 Unspecified place in unspecified non-institutional (private) residence as the place of occurrence of the external cause; M48.061 Spinal stenosis, lumbar region without neurogenic claudication; I11.0 Hypertensive heart disease with heart failure; Z95.2 Presence of prosthetic heart valve; Z96.641 Presence of right artificial hip joint; Z96.652 Presence of left artificial knee joint; Z79.02 Long term (current) use of antithrombotics/antiplatelets; S00.10XA Contusion of unspecified eyelid and periocular area, initial encounter; E66.9 Obesity, unspecified; Z68.29 Body mass index [BMI] 29.0-29.9, adult; I25.10 Atherosclerotic heart disease of native coronary artery without angina pectoris; I73.9 Peripheral vascular disease, unspecified; M19.90 Unspecified osteoarthritis, unspecified site; I70.0 Atherosclerosis of aorta; S01.80XA Unspecified open wound of other part of head, initial encounter
CPT/HCPCS: 36415; 70450-TC; 71045-TC; 72125-TC; 72128-TC; 72131-TC; 72170-TC; 72192-TC; 73020; 73552; 80048-TC; 80053-TC; 80061-TC; 80076-TC; 81000-TC; 82550-TC; 83605-TC; 83735-TC; 84100-TC; 84443-TC; 84484-TC; 85025-TC; 85730-TC; 86850-TC; 86921-TC; 87040-TC; 87081-TC; 87086-TC; 87186-TC; 93307-TC; 97110-TC; 97112-TC; 97530-TC; A6209; A6402; C1713; C9113; G0378; J0690; J0696; J1170; J1650; J2250; J2405; J2710; J2765; J3010; J3475; J3490; J7030; J7040; J7050; J7060; L0172; P9016-BL

== ENCOUNTER 2018-06-02 11:51 | Inpatient (IN) | payer MEDICARE, BC ==
[~2018-06-02] VITALS: Ht 147.3 cm; Wt 51.7 kg
[2018-06-02] VITALS (10 sets, daily range): BP systolic 140–173; BP diastolic 56–91
[~2018-06-02 11:51] MED LIST: BUSP5TAB3 PO; CALC0.253 PO; CLOP75TA15 PO; DOMPERIDONE PO; FURO-145 PO; HYDR200T81 PO; MELA3TAB PO; METO25TA6 PO; MYRBETRIQ PO; PANT40TA2 GT; PROM25TA15 PO
--- NOTE | 2018-06-02 11:58 | NUR ---
BIBRA 80 W C/O LOSS BALANCE GLF +HEAD INJURY WITH SWELLING +L CLAVICLE INJURY, TO ER BED 1, HOOKED TO MONITOR, CHANGED TO DR EARL NUNEZ AT BEDSIDE
--- NOTE | 2018-06-02 12:00 | NUR ---
SEEN AND EXAMINED BY DR. ELLIOTT.
--- NOTE | 2018-06-02 12:08 | NUR ---
TELEVISION SCRIPT WRITER AT BEDSIDE FOR EVAL.
--- NOTE | 2018-06-02 12:14 | NUR ---
WHEELED OUT FOR CT SCAN
--- NOTE | 2018-06-02 13:27 | NUR ---
CALLED NURS SUP FOR ICU BED
--- NOTE | 2018-06-02 13:35 | NUR ---
UNSUCCESSFUL IN TRYING TO START IVP. MADE AWARE
[2018-06-02 13:37] LABS: BASOPHILS # (AUTO) 0.1 /CMM (0.0-0.2); BASOPHILS % (AUTO) 0.6 % (0.0-2.0); EOSINOPHILS % (AUTO) 1.2 % (0.0-6.0); HEMATOCRIT 32 % (33-45); HEMOGLOBIN 10.5 g/dL (11.5-14.8); LYMPHOCYTES # (AUTO) 0.4 /CMM (0.8-4.8); LYMPHOCYTES % (AUTO) 4.4 % (20.0-44.0); MEAN CORPUSCULAR HGB CONC 33 g/dl (31.0-36.0); MEAN CORPUSCULAR VOLUME 95 fL (82-100); MONOCYTES # (AUTO) 0.6 /CMM (0.1-1.30); MONOCYTES % (AUTO) 5.7 % (2.0-12.0); NEUTROPHILS # (AUTO) 8.9 /CMM (1.8-8.9); NEUTROPHILS % (AUTO) 88.1 % (43.0-81.0); PLATELET COUNT (AUTO) 279 /CMM (150-450); RED BLOOD CELL COUNT(AUTO) 3.31 MIL/uL (4.0-5.2); WHITE BLOOD COUNT (AUTO) 10.1 K/uL (4.3-11.0)
[2018-06-02] MEDS ORDERED: FERR325T23 PO (13:39)
[2018-06-02] MEDS ORDERED: PANT40TA2 PO (13:39)
[2018-06-02] MEDS ORDERED: NITR50CA PO (13:39)
[2018-06-02] MEDS ORDERED: CYAN10006 IM (13:39)
[2018-06-02] MEDS ORDERED: SUCR1TAB PO (13:39)
[2018-06-02] MEDS ORDERED: ALEN70TA6 PO (13:39)
[2018-06-02] MEDS ORDERED: FLUT16SP16 NS (13:39)
[2018-06-02 13:46] LABS: CALCIUM, SERUM 8.4 mg/dL (8.5-10.1); CARBON DIOXIDE 27 mmol/L (21-32); CHLORIDE 109 mmol/L (98-107); GLUCOSE 86 mg/dL (74-106); POTASSIUM 3.9 mmol/L (3.5-5.1); SODIUM SERUM 144 mmol/L (136-145); UREA NITROGEN, BLOOD 16 mg/dL (7-18)
[2018-06-02 13:52] LABS: ALANINE AMINOTRANSFERASE 13 U/L (12-78); ALBUMIN 2.5 g/dL (3.4-5.0); ALKALINE PHOSPHATASE 330 U/L (46-116); ASPARTATE AMINOTRANSFERASE 23 U/L (15-37); BILIRUBIN,DIRECT 0.1 mg/dL (0.0-0.2); BILIRUBIN,TOTAL 0.3 mg/dL (0.2-1.0); TOTAL PROTEIN, SERUM 6.7 g/dL (6.4-8.2)
--- NOTE | 2018-06-02 14:00 | NUR ---
VASCULAR ACCESS NURSE ESTABLISHED MIDLINE AT [facility]
--- NOTE | 2018-06-02 14:04 | NUR ---
ICU 262 DX SUBDURAL HEMATOMA ACCEPTING DEVIN BAKER DNP
--- NOTE | 2018-06-02 15:00 | NUR ---
REPORT GIVEN TO FLORENTINO OF ICU UNIT
[2018-06-02] MEDS ORDERED: ACETAMINOPHEN 325 MG TABLET PO PRN (15:30)
[2018-06-02] MEDS ORDERED: ZOLPIDEM TARTRATE 5 MG TABLET PO PRN (15:30)
[2018-06-02] MEDS ORDERED: Z GUARD REMEDY 2 OZ OINT TP PRN (15:30)
[2018-06-02] MEDS ORDERED: FUROSEMIDE 20 MG TABLET PO PRN (15:30)
[2018-06-02] MEDS ORDERED: MAGNESIUM HYDROXIDE 30 ML UDC PO PRN (15:30)
[2018-06-02] MEDS ORDERED: ONDANSETRON HCL/PF 4 MG/2 ML VIAL IVP PRN (15:30)
[2018-06-02] MEDS ORDERED: MAG HYDROX/AL HYDROX/SIMETH 30 ML UDC PO PRN (15:30)
[2018-06-02] MEDS: METOPROLOL TARTRATE 25 MG TABLET PO SCH (16:03)
[2018-06-02] MEDS: HYDROCODONE/APAP 5/325MG 1 EACH TABLET PO PRN ×2 (16:08→23:26)
--- NOTE | 2018-06-02 16:11 | NUR ---
INITIAL STAVE BLOCK SPLITTER NOTE RCVD PT AWAKE AND ALERT, SHOWING NO S/O DISTRESS, SR ON MONITOR, ON RA TOLERATING WELL. BRUISING OVER LEFT CLAVICLE, AND BUMP OVER LEFT PARIETAL SIDE. MARILYN MIDLINE PLACED IN ER C/D/I/PATENT. NO S/O INFILTRATION/PHLEBITIS OBSERVED UPON FLUSHING. WILL CONTINUE TO MONITOR PT FOR SAFETY AND COMFORT. BED IN LOW AND LOCKED POSITION. CALL LIGHT WITHIN REACH, HEAD OF BED ELEVATED. PT'S DAUGHTER AT BEDSIDE, ADVANCE DIRECTIVE REQUESTED AND MACROBID TO BE BROUGHT FROM HOME FOR PHARMACY TO DISPENSE.
[2018-06-02] MEDS ORDERED: METOPROLOL TARTRATE 25 MG TABLET PO SCH (17:00)
--- NOTE | 2018-06-02 18:41 | NUR ---
MOLDED GOODS EMBOSSING PRESS OPERATOR NOTE PT REMAINS STABLE, SR ON MONITOR, ON RA TOLERATING WELL. TOLERATING ORDERED DIET. PT'S CARE WILL BE ENDORSED TO CUSTOMER CARE ASSISTANT RN FOR CONTINUITY OF CARE. BED IN LOW AND LOCKED POSITION. CALL LIGHT WITHIN REACH, HEAD OF BED ELEVATED.
--- NOTE | 2018-06-02 19:00 | NUR ---
RECEIVED PT IN NO ACUTE DISTRESS IN BED. PT IS A/O X 4 AND ABLE TO MAKE NEEDS KNOWN. PT IS HARD OF HEARING IN RIGHT EAR. PT IS ON RA AND TOLERATING WELL WITH O2 SAT @ 99%. PT NOT C/O ANY SOB, DIFFICULTY BREATHING OR PAIN AT THIS TIME. PT HAS MARILYN MIDLINE THAT IS CLEAN DRY INTACT AND PATENT WITH SALINE FLUSH. BED IN LOW LOCK POSITION WITH RIALS UP X 2. CALL LIGHT WITHIN REACH AND ALL SAFETY MEASURES ENSURED AND CARRIED OUT. WILL CONTINUE TO MONITOR PT.
[2018-06-03] VITALS (23 sets, daily range): BP systolic 128–169; BP diastolic 46–81
[2018-06-03 05:04] LABS: BASOPHILS # (AUTO) 0.1 /CMM (0.0-0.2); EOSINOPHILS % (AUTO) 4.6 % (0.0-6.0); HEMATOCRIT 26 % (33-45); HEMOGLOBIN 8.9 g/dL (11.5-14.8); LYMPHOCYTES # (AUTO) 0.7 /CMM (0.8-4.8); LYMPHOCYTES % (AUTO) 11.4 % (20.0-44.0); MEAN CORPUSCULAR HGB CONC 34 g/dl (31.0-36.0); MEAN CORPUSCULAR VOLUME 95 fL (82-100); MONOCYTES # (AUTO) 0.7 /CMM (0.1-1.30); MONOCYTES % (AUTO) 11.8 % (2.0-12.0); NEUTROPHILS # (AUTO) 4.1 /CMM (1.8-8.9); NEUTROPHILS % (AUTO) 71.2 % (43.0-81.0); PLATELET COUNT (AUTO) 228 /CMM (150-450); RED BLOOD CELL COUNT(AUTO) 2.76 MIL/uL (4.0-5.2); WHITE BLOOD COUNT (AUTO) 5.7 K/uL (4.3-11.0)
[2018-06-03 05:08] LABS: CALCIUM, SERUM 7.7 mg/dL (8.5-10.1); CARBON DIOXIDE 27 mmol/L (21-32); CHLORIDE 109 mmol/L (98-107); CREATININE 0.9 mg/dL (0.6-1.3); GLUCOSE 80 mg/dL (74-106); MAGNESIUM 1.3 mg/dL (1.8-2.4); PHOSPHORUS 3.5 mg/dL (2.5-4.9); POTASSIUM 3.6 mmol/L (3.5-5.1); SODIUM SERUM 142 mmol/L (136-145); UREA NITROGEN, BLOOD 16 mg/dL (7-18)
[2018-06-03 05:42] LABS: CHOLESTEROL 113 mg/dL (<200); HDL CHOLESTEROL 44 mg/dL (40-60); LDL 59 mg/dL (0-99); TRIGLYCERIDES 90 mg/dL (30-150)
[2018-06-03] MEDS ORDERED: PANTOPRAZOLE 40 MG TABLET.DR PO SCH (07:30)
--- NOTE | 2018-06-03 07:57 | NUR ---
INITIAL PUBLIC WORKS INSPECTOR NOTE RCVD PT AWAKE AND ALERT, SHOWING NO S/O DISTRESS AND NO C/O PAIN VERBALIZED. ON RA TOLERATING WELL, USING BEDPAN FOR VOIDING, MARILYN MIDLINE C/D/I/PATENT, NO S/O INFILTRATION/PHLEBITIS OBSERVED UPON FLUSHING. WILL CONTINUE TO MONITOR PT FOR SAFETY AND COMFORT, BED IN LOW AND LOCKED POSITION. CALL LIGHT WITHIN REACH, HEAD OF BED ELEVATED.
[2018-06-03] MEDS: METOPROLOL TARTRATE 25 MG TABLET PO SCH ×2 (08:02→16:12)
[2018-06-03] MEDS: HYDROCODONE/APAP 5/325MG 1 EACH TABLET PO PRN (08:05)
[2018-06-03] MEDS ORDERED: MACROBID PO SCH ×2 (09:00)
[2018-06-03] MEDS ORDERED: CALCITRIOL 0.25 MCG CAPSULE PO SCH (09:00)
[2018-06-03] MEDS ORDERED: FLUTICASONE PROPIONATE 16 GM BOTTLE NS SCH (09:00)
[2018-06-03] MEDS ORDERED: hydrALAZINE HCL IV 20 MG VIAL IV PRN (09:30)
[2018-06-03] MEDS ORDERED: Magnesium 1GM/D5W 100ML PREMIX 100 ML IV SCH (10:27)
[2018-06-03] MEDS: Magnesium 1GM/D5W 100ML PREMIX 100 ML IV SCH ×4 (10:44→15:19)
[2018-06-03] MEDS ORDERED: FERROUS SULFATE (325 MG) 325 MG/TAB TABLET PO SCH (15:30)
--- NOTE | 2018-06-03 18:55 | NUR ---
NON CLINICAL ADVISOR NOTE PT DISCHARGED HOME IN STABLE CONDITION, TRANSPORTATION PROVIDED BY PT'S DAUGHTER, CRISTY. PT TAKEN BY WHEELCHAIR TO PRIVATE VEHICLE. NO S/O DISTRESS/PAIN REPORTED.
[2018-06-05] MEDS ORDERED: ALENDRONATE 70 MG TABLET PO SCH (07:30)
== END 2018-06-03 18:51 | disposition home or self-care (01) | DRG 86 ==
LOC: ER 11:54 → ICU 14:20
PROVIDERS: ADMIT Nurse Practitioner Acute Care; ATTEND Nurse Practitioner Acute Care
PROC: 05H533Z Insertion of Infusion Device into Right Subclavian Vein, Percutaneous Approach (ICD-10-PCS; principal; 2018-06-02)
PROC: B546ZZA Ultrasonography of Right Subclavian Vein, Guidance (ICD-10-PCS; 2018-06-02)
DX: S06.5X0A Traumatic subdural hemorrhage without loss of consciousness, initial encounter (principal); D68.59 Other primary thrombophilia; W18.30XA Fall on same level, unspecified, initial encounter; I12.9 Hypertensive chronic kidney disease with stage 1 through stage 4 chronic kidney disease, or unspecified chronic kidney disease; Z79.01 Long term (current) use of anticoagulants; N18.9 Chronic kidney disease, unspecified; Z88.2 Allergy status to sulfonamides; Z95.2 Presence of prosthetic heart valve; Z79.899 Other long term (current) drug therapy; M81.0 Age-related osteoporosis without current pathological fracture; Y92.009 Unspecified place in unspecified non-institutional (private) residence as the place of occurrence of the external cause; Z91.81 History of falling; Z79.02 Long term (current) use of antithrombotics/antiplatelets; D64.9 Anemia, unspecified; E83.51 Hypocalcemia; Z96.649 Presence of unspecified artificial hip joint; M19.019 Primary osteoarthritis, unspecified shoulder; M75.120 Complete rotator cuff tear or rupture of unspecified shoulder, not specified as traumatic; K21.9 Gastro-esophageal reflux disease without esophagitis; E88.09 Other disorders of plasma-protein metabolism, not elsewhere classified; M75.122 Complete rotator cuff tear or rupture of left shoulder, not specified as traumatic
CPT/HCPCS: 36415; 70450-TC; 73030-TC; 80048-TC; 80061-TC; 80076-TC; 83735-TC; 84100-TC; 85025-TC; 85730-TC; 86850-TC; 87081-TC; G0378; J3475